=== PATIENT | female | born 1975 | race African-American/Black ===

== ENCOUNTER 2017-05-07 01:06 | Emergency (ER) | payer OTHER ==
[~2017-05-07] VITALS: Ht 177.8 cm; Wt 129.0 kg
[~2017-05-07 01:06] MED LIST: HYDROCHLOROTHIAZIDE; LISINOPRIL
[2017-05-07 01:11] VITALS: BP 197/101
== END 2017-05-07 08:16 | disposition left against medical advice (07) ==
LOC: ER 07:49
DX: Z53.21 Procedure and treatment not carried out due to patient leaving prior to being seen by health care provider (principal)
CPT/HCPCS: 81025; 93005